=== PATIENT | male | born 1950 | race African-American/Black ===

== ENCOUNTER 2019-06-04 09:08 | Emergency (ER) | payer OTHER ==
[2019-06-04 09:30] VITALS: BP 151/82; PULSE 63; TEMP 98; BMI 23.6
--- NOTE | 2019-06-04 09:33 | PDOC ---
Rapid Medical Evaluation Chief Complaint: Pain Time Seen by Provider: 06/04/19 09:32 Medical Evaluation: Allergies Allergy/AdvReac Type Severity Reaction Status Date / Time No Known Allergies Allergy Verified 06/04/19 09:28 Vital Signs Temp Pulse Resp BP Pulse Ox 98 F 63 16 151/82 100 06/04/19 09:28 06/04/19 09:28 06/04/19 09:28 06/04/19 09:28 06/04/19 09:28 06/04/19 09:32 Patient is 68M with no known PMH here today with L shoulder/back pain. Tender over L posterior trapezius. Neurovascularly intact. X-rays ordered. Patient to proceed to fast track. Discharge Disposition - Diagnosis Shoulder pain - Discharge Dispostion Condition at time of disposition: Stable - Referrals - Patient Instructions - Post Discharge Activity
[2019-06-04] MEDS ORDERED: KETOROLAC TROMETHAMINE 30 MG/1 ML VIAL IM ONE (11:20)
--- NOTE | 2019-06-04 11:48 | PDOC ---
History of Present Illness - General Chief Complaint: Pain Stated Complaint: LT SHOULDER PAIN Time Seen by Provider: 06/04/19 09:32 History Source: Patient Exam Limitations: No Limitations - History of Present Illness Initial Comments: 06/04/19 11:45 68-year-old male denies past medical history [id number] presents complaining of left upper back pain x2 weeks. Pain comes and goes without any intervention. Patient notices pain usually occurs after shoveling or performing heavy duty physical labor. Pain resolves without any intervention. Denies trauma, fever, chills, weight loss, chest pain, shortness of breath, abdominal pain or any other complaint. ROS: GENERAL/CONSTITUTIONAL: No fever, chills, weakness, dizziness HEAD, EYES, EARS, NOSE AND THROAT: No changes in vision, No ear pain or discharge, No sore throat CARDIOVASCULAR: No chest pain RESPIRATORY: No shortness of breath or cough GASTROINTESTINAL: No pain, nausea, vomiting, diarrhea or constipation GENITOURINARY: No dysuria MUSCULOSKELETAL: No neck or back pain SKIN: No rash NEUROLOGIC: No headache, vertigo, loss of consciousness, or loss of sensation PE: GENERAL: well-appearing, NAD HEAD: NCAT EYES: Pupils equal, round and reactive to light, sclera anicteric, conjunctiva clear ENT: pharynx: no erythema, no exudate, uvula midline NECK: supple CHEST: nontender RESP: clear, no w/r/r CARDIO: rrr, no m/g/r ABD: +BS, soft, nontender, non distended BACK: Minimal tenderness to palpation over lateral aspect of left scapula, no midline spinal ttp, no CVAT EXTREMITIES: Normal range of motion, no edema NEUROLOGICAL: Normal speech, normal gait SKIN: Warm, Dry 06/04/19 11:56 Is this a multiple visit Asthma Patient?: No Past History - Past Medical History Allergies/Adverse Reactions: Allergies Allergy/AdvReac Type Severity Reaction Status Date / Time No Known Allergies Allergy Verified 06/04/19 09:28 Home Medications: Ambulatory Orders NK [No Known Home Medication] 06/04/19 - Psycho Social/Smoking Cessation Hx Smoking History: Former smoker Have you smoked in the past 12 months: No Information on smoking cessation initiated: No Hx Alcohol Use: No Drug/Substance Use Hx: No *Physical Exam - Vital Signs Last Vital Signs Temp Pulse Resp BP Pulse Ox 98 F 63 16 151/82 100 06/04/19 09:28 06/04/19 09:28 06/04/19 09:28 06/04/19 09:28 06/04/19 09:28 Medical Decision Making - Medical Decision Making 06/04/19 11:57 68-year-old denies past medical history presents complaining of intermittent left upper back pain x2 weeks. Usually pain presents after constant heavy duty physical labor or shoveling. Left shoulder -negative Toradol 30 mg IM given stable for discharge Advised PMD follow-up Discharge - Discharge Information Problems reviewed: Yes Clinical Impression/Diagnosis: Upper back pain on left side Clinical Impression/Diagnosis: (Ruled Out): Shoulder pain Condition: Stable Disposition: HOME - Admission No - Follow up/Referral Referrals: David De Santiago [Primary Care Provider] - - Patient Discharge Instructions Additional Instructions: Alternate between acetaminophen and ibuprofen every 6 hours as needed for pain Follow-up with your doctor within 1 week Return to ED if worsening pain, fever or any persisting symptoms - Post Discharge Activity
[2019-06-04] MEDS ORDERED: KETOROLAC TROMETHAMINE 30 MG/1 ML VIAL ONE (11:51)
== END 2019-06-04 12:05 | disposition home or self-care (01) ==
LOC: JERFT 09:08
PROC: 3E0233Z Introduction of Anti-inflammatory into Muscle, Percutaneous Approach (ICD-10-PCS; principal; 2019-06-04)
DX: M54.89 Other dorsalgia (principal)
CPT/HCPCS: 73030-TC-LT-FY; 99281-25

== ENCOUNTER 2021-08-27 07:58 | Emergency (ER) | payer OTHER ==
[2021-08-27 08:11] VITALS: TEMP 98.1; BMI 25.8
[2021-08-27] MEDS ORDERED: LIDOCAINE HCL 5% TOP OINTMENT 50 GM TUBE TP ONE (08:26)
[2021-08-27] MEDS ORDERED: ACETAMINOPHEN 1000 MG/100 ML BAG IVPB ONE (08:26)
[2021-08-27] MEDS ORDERED: ACETAMINOPHEN INJECTION 100 ML IVPB ONE (08:38)
[2021-08-27 09:22] LABS: BASO % 0.6 % (0-2.0); EOS % 1.2 % (0-4.5); HEMATOCRIT 40.3 % (35.4-49); HEMOGLOBIN 13.6 GM/dL (11.7-16.9); MCH 31.6 pg (25.7-33.7); MCHC 33.7 g/dl (32.0-35.9); MEAN CELL VOLUME 93.8 fl (80-96); MEAN PLT VOLUME 10.7 fl (7.5-11.1); MONO % 4.7 % (3.8-10.2); NEUT % 53.5 % (42.8-82.8); PLATELET COUNT 287 10^3/uL (134-434); RBC 4.29 M/mm3 (4.00-5.60); RDW 15.1 % (11.9-15.9); WHITE BLOOD COUNT 2.3 K/mm3 (4.0-10.0)
[2021-08-27 09:47] LABS: CALCIUM 9.2 mg/dL (8.5-10.1)
[2021-08-27 09:48] LABS: ALBUMIN 3.4 g/dl (3.4-5.0); BLOOD UREA NITROGEN 15.7 mg/dL (7-18)
[2021-08-27 09:52] LABS: BILIRUBIN,TOTAL 0.5 mg/dL (0.2-1); TOT PROT 9.1 g/dl (6.4-8.2)
[2021-08-27] MEDS ORDERED: KETOROLAC TROMETHAMINE 15 MG/ML VIAL IVPUSH ONE (10:08)
[2021-08-27] MEDS ORDERED: KETOROLAC TROMETHAMINE 15 MG/ML VIAL ONE (10:26)
[2021-08-27 10:40] VITALS: BP 154/85; PULSE 54
== END 2021-08-27 10:40 | disposition home or self-care (01) ==
LOC: JER 07:58
PROC: 3E033GC Introduction of Other Therapeutic Substance into Peripheral Vein, Percutaneous Approach (ICD-10-PCS; principal; 2021-08-27)
DX: M54.2 Cervicalgia (principal); M54.89 Other dorsalgia
CPT/HCPCS: 36415; 71046-TC-FY; 80053; 84484; 85025; 93005; 93010; 96374; 96375; 99285-25

== ENCOUNTER 2023-02-21 09:50 | Emergency (ER) | payer MEDICARE, OTHER ==
[2023-02-21 09:55] VITALS: BP 165/92; PULSE 96; RESP 20; TEMP 98.9; BMI 25.8
[2023-02-21] MEDS ORDERED: KETOROLAC TROMETHAMINE 30 MG/1 ML VIAL IVPUSH ONE (10:52)
[2023-02-21] MEDS ORDERED: SODIUM CHLORIDE 0.9% 500 ML INFUS.BAG IV ONE (10:52)
[2023-02-21] MEDS ORDERED: KETOROLAC TROMETHAMINE 30 MG/1 ML VIAL ONE (10:59)
[2023-02-21 11:28] LABS: BASO % 0.6 % (0-2.0); EOS % 0.5 % (0-4.5); HEMATOCRIT 40.2 % (35.4-49); LYMPH % 33.1 % (8-40); MCH 31.1 pg (25.7-33.7); MCHC 32.3 g/dl (32.0-35.9); MEAN CELL VOLUME 96.5 fl (80-96); MEAN PLT VOLUME 9.1 fl (7.5-11.1); NEUT % 60.8 % (42.8-82.8); PLATELET COUNT 193 10^3/uL (134-434); RBC 4.17 M/mm3 (4.00-5.60); RDW 14.5 % (11.9-15.9); WHITE BLOOD COUNT 2.3 K/mm3 (4.0-10.0)
[2023-02-21 11:29] LABS: URINE APPEARANCE CLEAR; URINE BILIRUBIN NEGATIVE (NEGATIVE); URINE COLOR YELLOW; URINE GLUCOSE (UA) NEGATIVE (NEGATIVE); URINE KETONE NEGATIVE (NEGATIVE); URINE LEUK ESTERASE NEGATIVE (NEGATIVE); URINE NITRITE NEGATIVE (NEGATIVE); URINE PROTEIN NEGATIVE (NEGATIVE); URINE UROBILINOGEN 0.2 mg/dL (0.2-1.0)
[2023-02-21 12:00] LABS: POTASSIUM 4.4 mmol/L (3.5-5.1)
[2023-02-21 12:02] LABS: ALBUMIN 3.3 g/dl (3.4-5.0); BLOOD UREA NITROGEN 14.9 mg/dL (7-18); CALCIUM 9.1 mg/dL (8.5-10.1); MAGNESIUM 1.9 mg/dL (1.8-2.4)
[2023-02-21 12:05] LABS: CREATININE 1.1 mg/dL (0.55-1.3); PHOSPHOROUS 2.7 mg/dL (2.5-4.9)
[2023-02-21 12:07] LABS: BILIRUBIN,TOTAL 0.4 mg/dL (0.2-1); TOT PROT 9.2 g/dl (6.4-8.2)
== END 2023-02-21 14:20 | disposition home or self-care (01) ==
LOC: JER 09:50
PROC: 3E0333Z Introduction of Anti-inflammatory into Peripheral Vein, Percutaneous Approach (ICD-10-PCS; principal; 2023-02-21)
DX: M54.50 Low back pain, unspecified (principal); R10.9 Unspecified abdominal pain
CPT/HCPCS: 36415; 71046-TC-FY; 74176-TC; 80053; 81003; 83735; 84100; 84484; 85025; 87077; 87086; 96374; 99285-25

== ENCOUNTER 2023-09-18 07:31 | Emergency (ER) | payer MEDICARE ==
[2023-09-18 07:39] VITALS: TEMP 97.7; BMI 26.5
[2023-09-18] MEDS ORDERED: KETOROLAC TROMETHAMINE 15 MG/ML VIAL ONE (08:15)
[2023-09-18] MEDS: ACETAMINOPHEN 1000 MG/100 ML BAG IVPB ONE (08:24)
[2023-09-18] MEDS: KETOROLAC TROMETHAMINE 15 MG/ML VIAL IVPUSH ONE (08:26)
[2023-09-18] MEDS ORDERED: ACETAMINOPHEN INJECTION 100 ML IVPB ONE (08:27)
[2023-09-18 08:37] LABS: BASO % 1.3 % (0-2.0); EOS % 1.7 % (0-4.5); HEMATOCRIT 39.9 % (35.4-49); MCH 31.3 pg (25.7-33.7); MCHC 32.6 g/dl (32.0-35.9); MEAN CELL VOLUME 96.1 fl (80-96); MEAN PLT VOLUME 9.1 fl (7.5-11.1); MONO % 4.1 % (3.8-10.2); NEUT % 56.9 % (42.8-82.8); PLATELET COUNT 192 10^3/uL (134-434); RBC 4.15 M/mm3 (4.00-5.60); RDW 13.7 % (11.9-15.9); WHITE BLOOD COUNT 2.3 K/mm3 (4.0-10.0)
[2023-09-18 08:54] LABS: POTASSIUM 3.9 mmol/L (3.5-5.1)
[2023-09-18 08:56] LABS: CALCIUM 8.8 mg/dL (8.5-10.1)
[2023-09-18 08:57] LABS: ALBUMIN 3.2 g/dl (3.4-5.0); BLOOD UREA NITROGEN 16.7 mg/dL (7-18)
[2023-09-18 09:00] LABS: CREATININE 1.1 mg/dL (0.55-1.3)
[2023-09-18 09:01] LABS: BILIRUBIN,TOTAL 0.5 mg/dL (0.2-1); TOT PROT 8.6 g/dl (6.4-8.2)
[2023-09-18 09:19] LABS: URINE APPEARANCE CLEAR; URINE BILIRUBIN NEGATIVE (NEGATIVE); URINE COLOR YELLOW; URINE GLUCOSE (UA) NEGATIVE (NEGATIVE); URINE KETONE TRACE (NEGATIVE); URINE LEUK ESTERASE NEGATIVE (NEGATIVE); URINE NITRITE NEGATIVE (NEGATIVE); URINE PROTEIN NEGATIVE (NEGATIVE); URINE UROBILINOGEN 0.2 mg/dL (0.2-1.0)
[2023-09-18 11:48] VITALS: BP 157/100; PULSE 65; RESP 16
== END 2023-09-18 12:08 | disposition home or self-care (01) ==
LOC: JER 07:31
PROC: 3E033NZ Introduction of Analgesics, Hypnotics, Sedatives into Peripheral Vein, Percutaneous Approach (ICD-10-PCS; principal; 2023-09-18)
PROC: 3E0333Z Introduction of Anti-inflammatory into Peripheral Vein, Percutaneous Approach (ICD-10-PCS; 2023-09-18)
DX: R10.32 Left lower quadrant pain (principal)
CPT/HCPCS: 36415; 74176-TC; 80053; 81003; 85025; 87086; 96374; 96375; 99284-25; J0131